=== PATIENT | male | born 1945 | race Caucasian/White ===

== ENCOUNTER 2024-11-06 09:48 | Day surgery (SDC) | payer OTHER ==
[2024-11-02 12:10] LABS: BASOPHILS # (AUTO) 0.1 X10'3 (0-0.2); BASOPHILS % (AUTO) 1.4 % (0-1); EOSINOPHILS # (AUTO) 0.2 X10'3 (0-0.9); EOSINOPHILS % (AUTO) 5.7 % (0-6); HEMATOCRIT 40.8 % (42.0-52.0); LYMPHOCYTES # (AUTO) 0.6 X10'3 (1.1-4.8); LYMPHOCYTES % (AUTO) 16.5 % (21-51); MEAN CORPUSCULAR HEMOGLOBIN 32.7 PG (27.0-31.0); MEAN CORPUSCULAR HGB CONC 34.3 g/dL (33.0-36.5); MEAN CORPUSCULAR VOLUME 95.3 FL (78-98); MEAN PLATELET VOLUME 7.4 FL (7.4-10.4); MONOCYTES # (AUTO) 0.4 X10'3 (0-0.9); MONOCYTES % (AUTO) 10.9 % (2-12); NEUTROPHILS # (AUTO) 2.5 X10'3 (1.8-7.7); NEUTROPHILS % (AUTO) 65.5 % (42-75); PLATELET COUNT 205 X10'3 (140-440); RED BLOOD COUNT 4.28 X10'6 (4.70-6.10); RED CELL DISTRIBUTION WIDTH 13.6 % (11.5-14.5); WHITE BLOOD COUNT 3.8 X10'3 (4.5-11.0)
[2024-11-02 12:21] LABS: APTT 27 SECONDS (22-32); PROTHROMBIN TIME 10.6 SECONDS (9.0-12.0)
[2024-11-02 12:23] LABS: ALBUMIN 3.8 G/DL (3.4-5.0); ANION GAP 7 (8-16); BLOOD UREA NITROGEN 29 MG/DL (7-18); BUN/CREATININE RATIO 21.3 (10.0-20.0); CALCIUM 9.1 MG/DL (8.5-10.1); CHLORIDE 106 MMOL/L (99-107); CHOL/HDL RATIO 3.1 (0.00-4.99); CHOLESTEROL 175 MG/DL (0-200); CREATININE 1.36 MG/DL (0.60-1.10); GLUCOSE 103 MG/DL (70-104); HDL CHOLESTEROL 57 MG/DL (35-60); LDL CHOLESTEROL 95 MG/DL (50-100); POTASSIUM 4.3 MMOL/L (3.5-5.1); SODIUM 143 MMOL/L (135-145); TOTAL CARBON DIOXIDE 29.9 MMOL/L (24-32); TRIGLYCERIDES 84 MG/DL (20-135); eGFR 50 ML/MIN
[~2024-11-06] VITALS: Ht 167.6 cm; Wt 64.5 kg
[2024-11-06] VITALS (9 sets, daily range): BP systolic 103–134; BP diastolic 69–94; PULSE 60–84; RESP 13–17; TEMP 98.5; O2SAT 93–98
[~2024-11-06 09:48] MED LIST: ASPI-1264 PO; LISI-222 PO; PIRO10CA PO; SYN0.025T PO; ZOC40T PO
--- NOTE | 2024-11-06 10:11 | ELECTROCARDIOGRAPH REPORT ---
[facility] Test Date: 2024-11-06 Test Time: 10:08:41 Pat Name: STEVE ROWAN Department: [facility] Patient ID: [facility]-[id number] Room: Gender: M Customer Care Team Coach: FATMATA : 1945 Requested By: ELIAZAR WISE Order Number: [id number] Reading MD: Dr. Tihsa Wise Measurements Intervals [place] Rate: 68 P: 46 MI: 135 QRS: -29 QRSD: 145 T: 10 QT: 411 QTc: 438 Interpretive Statements Sinus rhythm Right bundle branch block Electronically Signed On 11-07-2024 6:56:[address] Tisha Wise Please click the below link to view image of tracing.
[2024-11-06] MEDS ORDERED: LEVO88TA7 PO (10:17)
[2024-11-06] MEDS ORDERED: ATOR20TA66 PO (10:17)
[2024-11-06] MEDS ORDERED: OXYB-58 PO (10:17)
[2024-11-06] MEDS ORDERED: TAMS-55 PO (10:17)
[2024-11-06] MEDS: diphenhydrAMINE 25mg capsule PO PRN (12:39)
[2024-11-06] MEDS: LORazepam 0.5 MG tablet PO PRN (12:39)
[2024-11-06] MEDS: normal saline 1,000 ML IV SCH (12:39)
[2024-11-06] MEDS ORDERED: iohexol 350MG/ML 100ml bottle IV ONE (13:33)
[2024-11-06] MEDS ORDERED: verapamil 2.5 mg/ml inj IV ONE (13:33)
[2024-11-06] MEDS ORDERED: heparin 1,000unit/ml 10ml vial 10 ML ONE (13:33)
[2024-11-06] MEDS ORDERED: fentaNYL/PF 50MCG/1 ML 2ML syringe ONE (13:33)
[2024-11-06] MEDS ORDERED: midazolam 1 mg/ML 2ml injection ONE (13:33)
[2024-11-06] MEDS ORDERED: LIDOcaine 1% (10mg/ml) 2ml vial ONE (13:33)
[2024-11-06] MEDS ORDERED: nitroGLYCERIN 500mcg/5mL D5W 5 ML IV ONE (13:34)
[2024-11-06] MEDS ORDERED: HYDROcodone/acetaminophen 5mg/325mg tablet PO PRN (15:25)
[2024-11-06] MEDS ORDERED: HYDROcodone/acetaminophen 10/325mg tab PO PRN (15:25)
[2024-11-06] MEDS ORDERED: ondansetron/PF 4mg/2ml inj IV PRN (15:25)
[2024-11-06] MEDS ORDERED: OXAZEpam 15mg capsule PO PRN (15:25)
[2024-11-06] MEDS ORDERED: proCHLORperazine 10 MG/2 ml inj IV PRN (15:25)
--- NOTE | 2024-11-17 10:25 | CARDIOLOGY REPORT ---
DATE OF SERVICE: 11/06/2024 DICTATING PHYSICIAN: Tisha Wise MD CARDIAC CATHETERIZATION REPORT DATE OF STUDY: 11/06/2024 PROCEDURES: * Left heart catheterization. * Selective coronary angiography. * Left ventriculography. * Conscious sedation monitoring time for 15 minutes. INDICATION: * Preop evaluation. * Abnormal stress test. PHYSICIAN: Tisha Wise MD PROCEDURE: After informed consent was obtained, the patient was brought to the cardiac pit laborer in a fasting state where the patient was prepped and draped in the usual sterile manner. After adequate anesthesia was obtained using 1% lidocaine to the right wrist, a 5-Burmese sheath was inserted into the right radial artery using a modified Seldinger technique. Thereafter, using a cocktail of heparin, verapamil and nitroglycerin, the cocktail was given via the sheath in the radial artery to prevent coronary vasospasm and for anticoagulation. Next, using an Ultimate-2 catheter, the catheter was advanced under fluoroscopy guidance into the ascending aorta. The catheter was then manipulated to engage the left coronary system and coronary angiography of the left system was obtained. Next, the catheter was disengaged and manipulated to engage the right coronary artery and selective coronary angiography of the right coronary artery was obtained. Thereafter, the catheter was disengaged from the right coronary artery and manipulated to advance into the left ventricle where left ventriculography in the GALVAN position was obtained. The catheter was then removed. Hemostasis was obtained using the radial band. HEMODYNAMICS: For the patient's hemodynamics, please refer to the event log. There was no significant gradient across the aortic valve on catheter pullback. Left ventricular end diastolic pressure was 3 mmHg. FINDINGS: All of the patient's coronary arteries are medium caliber vessels that are mildly calcified with mild luminal irregularities. IMPRESSION: * Mildly calcified coronary arteries with mild luminal irregularities and no significant disease by angiography. * Normal left ventricular function. * Left ventricular end diastolic pressure is 3 mmHg. Tisha Wise MD TID: [id number] RECEIPT: [id number] GURDEEP/KECIA
== END 2024-11-06 18:00 | disposition home or self-care (01) ==
LOC: SSTAY O 09:48
PROVIDERS: ATTEND Student in an Organized Health Care Education/Training Program
DX: R94.39 Abnormal result of other cardiovascular function study (principal); I25.10 Atherosclerotic heart disease of native coronary artery without angina pectoris; E78.00 Pure hypercholesterolemia, unspecified; I10 Essential (primary) hypertension; M19.90 Unspecified osteoarthritis, unspecified site; Z98.890 Other specified postprocedural states; Z79.890 Hormone replacement therapy; Z79.899 Other long term (current) drug therapy
CPT/HCPCS: 36415; 80048; 80061; 83695; 85025; 85610; 85730; 93005; 93458; 99152; J1644; J2003; J2250; J3010; J3490; J7030; Q0163; Q9967; 99153; A6258; A6449; C1894